=== PATIENT | male | born 1960 | race Two or more races ===

== ENCOUNTER 2025-01-10 22:53 | Inpatient (IN) | payer OTHER ==
[~2025-01-10] VITALS: Ht 175.3 cm; Wt 77.3 kg
[2025-01-10 23:35] LABS: PLATELET COUNT (AUTO) 171 K/uL (150-450); RED BLOOD CELL COUNT(AUTO) 4.59 MIL/uL (4.50-5.90); RED CELL DISTRIBUTION WIDTH 13.0 % (11.5-14.5); WHITE BLOOD COUNT (AUTO) 6.4 K/uL (4.5-11.0)
[2025-01-10 23:42] LABS: CALCIUM, TOTAL 9.3 mg/dL (8.8-10.5); CREATININE 0.96 mg/dL (0.60-1.30); GLOMERULAR FILTR. RATE CALC > 60 mL/min (>60); GLUCOSE,RANDOM 106 mg/dL (70-110); SODIUM SERUM 140 mmol/L (136-145); UREA NITROGEN, BLOOD 19 mg/dL (7-18)
[2025-01-10 23:48] LABS: CREATINE KINASE, TOTAL ONLY 63 U/L (39-308)
[2025-01-10 23:52] LABS: TROPONIN I-HIGH SENSITIVITY 23 ng/L (<76)
[2025-01-11] MEDS: LOSARTAN POTASSIUM 25 MG TABLET PO ONE (00:22)
[2025-01-11] MEDS: ACETAMINOPHEN 325 MG TABLET PO ONE (00:22)
[2025-01-11] MEDS ORDERED: MAGNESIUM HYDROXIDE SUSPENSION 30 ML UDCUP PO PRN (02:00)
[2025-01-11] MEDS ORDERED: ONDANSETRON HCL 4 MG/2 ML VIAL IVP PRN (02:00)
[2025-01-11 06:59] LABS: APPEARANCE,URINE CLEAR (CLEAR); GLUCOSE, URINE (UA) NEGATIVE (NEGATIVE); LEUKOCYTE ESTERASE ,URINE NEGATIVE (NEGATIVE); NITRATE,URINE NEGATIVE (NEGATIVE); OCCULT BLOOD,URINE NEGATIVE (NEGATIVE); SPECIFIC GRAVITIY, URINE 1.014 (1.003-1.030)
[2025-01-11 10:13] VITALS: BP 131/82; PULSE 72; RESP 18; TEMP 97.3; O2SAT 98
[2025-01-11] MEDS: DOCUSATE SODIUM 100 MG CAPSULE PO SCH (11:20)
[2025-01-11] MEDS: HEPARIN SODIUM,PORCINE 5,000 UNITS/ML VIAL SQ SCH (11:20)
[2025-01-11] MEDS: LOSARTAN POTASSIUM 25 MG TABLET PO SCH (11:20)
[2025-01-11] MEDS: PANTOPRAZOLE SODIUM 40 MG DR TABLET PO SCH (11:20)
[2025-01-11] MEDS: BISACODYL 10 MG RECTAL RECTAL SUPPOSITORY PR PRN (15:40)
[2025-01-11 20:02] VITALS: BP 113/67; PULSE 68; RESP 18; TEMP 97.9; O2SAT 97
[2025-01-12 04:36] VITALS: BP 148/74; PULSE 62; RESP 18; TEMP 97.9; O2SAT 97
[2025-01-12 08:18] VITALS: BP 125/78; PULSE 68; RESP 18; TEMP 98; O2SAT 97
[2025-01-12 19:47] VITALS: BP 119/88; PULSE 78; RESP 18; TEMP 98.1; O2SAT 98
[2025-01-12] MEDS: ZOLPIDEM TARTRATE 5 MG TABLET PO PRN (20:54)
[2025-01-13 02:25] VITALS: BP 132/77; PULSE 73; RESP 18; TEMP 98.1; O2SAT 98
[2025-01-13] MEDS: ACETAMINOPHEN 325 MG TABLET PO PRN (02:25)
[2025-01-13 05:03] VITALS: BP 125/81; PULSE 78; RESP 18; TEMP 98.2; O2SAT 99
[2025-01-13 07:56] VITALS: BP 129/73; PULSE 70; RESP 18; TEMP 97.5; O2SAT 100
[2025-01-13 15:49] VITALS: BP 130/84; PULSE 75; RESP 18; TEMP 98.4; O2SAT 100
[2025-01-13 20:10] VITALS: BP 119/82; PULSE 74; RESP 20; TEMP 98.2; O2SAT 100
[2025-01-13] MEDS: LOSARTAN POTASSIUM 25 MG TABLET PO SCH (21:03)
[2025-01-14 05:19] VITALS: BP 101/74; PULSE 62; RESP 18; TEMP 97.7; O2SAT 97
[2025-01-14 07:29] VITALS: BP 106/87; PULSE 68; RESP 19; TEMP 98.6; O2SAT 98
[2025-01-14 10:33] VITALS: BP 103/72; RESP 18; O2SAT 99
[2025-01-14 19:10] VITALS: BP 112/84; PULSE 66; RESP 18; TEMP 97.9; O2SAT 100
[2025-01-15 05:02] VITALS: BP 110/93; PULSE 99; RESP 18; TEMP 98.2; O2SAT 98
[2025-01-15 08:24] VITALS: BP 104/71; PULSE 80; RESP 18; TEMP 97.7; O2SAT 100
[2025-01-15] MEDS: TRAVOPROST-Z 0.004% 2.5 ML OPHTHALMIC SOLUTION OU SCH (20:11)
[2025-01-15 21:01] VITALS: BP 126/103; PULSE 66; RESP 18; TEMP 97.5; O2SAT 97
[2025-01-15 22:37] VITALS: BP 114/78; PULSE 68; RESP 18; TEMP 97.9; O2SAT 99
[2025-01-16 04:14] VITALS: BP 127/65; PULSE 62; RESP 18; TEMP 97.9; O2SAT 100
[2025-01-16 06:56] LABS: CALCIUM, TOTAL 9.0 mg/dL (8.8-10.5); CREATININE 0.89 mg/dL (0.60-1.30); GLOMERULAR FILTR. RATE CALC > 60 mL/min (>60); GLUCOSE,RANDOM 89 mg/dL (70-110); SODIUM SERUM 140 mmol/L (136-145); UREA NITROGEN, BLOOD 19 mg/dL (7-18)
[2025-01-16 08:08] VITALS: BP 104/74; PULSE 62; RESP 18; TEMP 98.1; O2SAT 99
[2025-01-16 21:00] VITALS: BP 110/72; PULSE 58; RESP 20; TEMP 97.9; O2SAT 95
[2025-01-17 05:14] VITALS: BP 102/88; PULSE 74; RESP 20; TEMP 97.9; O2SAT 96
[2025-01-17 08:46] VITALS: BP 121/87; PULSE 65; RESP 18; TEMP 97.7; O2SAT 97
[2025-01-17 19:57] VITALS: BP 117/77; PULSE 63; RESP 20; TEMP 97.9; O2SAT 94
[2025-01-18 04:34] VITALS: BP 118/90; PULSE 70; RESP 18; TEMP 98.2; O2SAT 99
[2025-01-18 07:59] VITALS: BP 110/72; PULSE 76; RESP 18; TEMP 98.2; O2SAT 98
[2025-01-18 20:26] VITALS: BP 109/68; PULSE 66; RESP 18; TEMP 98.1; O2SAT 96
[2025-01-19 03:19] VITALS: BP 115/72; PULSE 65; RESP 18; TEMP 97.5; O2SAT 99
[2025-01-19 08:45] VITALS: BP 109/76; PULSE 63; RESP 18; TEMP 98.1; O2SAT 99
[2025-01-19] MEDS ORDERED: TRAV2.5D7 OU (14:45)
[2025-01-19] MEDS ORDERED: LOSA-417 PO (14:45)
[2025-01-19 20:00] VITALS: BP 115/71; PULSE 70; RESP 18; TEMP 98.2; O2SAT 98
== END 2025-01-19 20:45 | DRG 885 ==
LOC: EMS 23:05 → EDH 01-11 01:54 → 6S 01-11 09:40
PROVIDERS: ADMIT Internal Medicine; ATTEND Internal Medicine
DX: F33.1 Major depressive disorder, recurrent, moderate (principal); R45.851 Suicidal ideations; F43.10 Post-traumatic stress disorder, unspecified; I10 Essential (primary) hypertension; R79.89 Other specified abnormal findings of blood chemistry; F41.9 Anxiety disorder, unspecified; Z86.73 Personal history of transient ischemic attack (TIA), and cerebral infarction without residual deficits
CPT/HCPCS: 71045; 80048; 81003; 82550; 83880; 84484; 85025; 93005; 99285; J1644; 36415-L1; 36415-TC